=== PATIENT | female | born 1955 | race African-American/Black ===

== ENCOUNTER 2020-08-26 16:37 | Emergency (ER) | payer SELFPAY ==
[~2020-08-26] VITALS: Ht 160 cm; Wt 65.8 kg
[2020-08-26 16:42] VITALS: BP 137/73
--- NOTE | 2020-08-26 16:47 | NUR ---
Pt W/C assistance to ER bed 5.
--- NOTE | 2020-08-26 16:51 | NUR ---
64 Y/O FEMALE C/O RIGHT FOOT PAIN 10/11 DESCRIBES SHARP NON-RADIATING WORST WHEN BEARING WEIGHT X5HR AGO. PT STATES SHE WAS AT [facility] AND SOMETHING FELL ON HER FOOT IN THE STORE. PT STATES SHE TOOK TYNENOL AND APPLIED AN ICE PACK WITH MINIMAL RELIEF. PT DENIES N/V, DENIES FEVER/CHILLS, DENIES SOB. PMH: HTN ALLERGIES: PCN
--- NOTE | 2020-08-26 16:55 | NUR ---
color laboratory technician at pt bedside.
[2020-08-26] MEDS ORDERED: ACET-2619 PO (17:48)
[2020-08-26] MEDS ORDERED: IBUP-2213 PO (17:48)
--- NOTE | 2020-08-26 18:06 | NUR ---
Patient discharged with v/s stable. Written and verbal after care instructions given FOOT PAIN and explained. Patient alert, oriented and verbalized understanding of instructions. Ambulatory with steady gait. All questions addressed prior to discharge. ID band removed. Patient advised to follow up with PMD. Rx of MOTRIN 600MG PO TID, AND TYNENOL 325MG PO Q8H PRN PAIN given. Patient educated on indication of medication including possible reaction and side effects. Opportunity to ask questions provided and answered.
--- NOTE | 2020-08-26 18:06 | NUR ---
PT PLACED IN RIGHT ORHTO-SHOE, CMS WNL BEFORE AND AFTER. RN NOTIFIED
== END 2020-08-26 18:06 | disposition home or self-care (01) ==
LOC: MED 16:37
DX: S93.601A Unspecified sprain of right foot, initial encounter (principal); I10 Essential (primary) hypertension; W22.8XXA Striking against or struck by other objects, initial encounter; Y93.89 Activity, other specified; Y92.89 Other specified places as the place of occurrence of the external cause; Y99.8 Other external cause status
CPT/HCPCS: 29515; 73630; 99283